=== PATIENT | female | born 1975 | race African-American/Black ===

== ENCOUNTER 2022-11-26 13:26 | Emergency (ER) | payer SELFPAY ==
[~2022-11-26] VITALS: Ht 162.6 cm; Wt 58.0 kg
[2022-11-26 13:45] VITALS: BP 138/90
[2022-11-26] MEDS ORDERED: TETRACAINE 0.5% OPHTH DROPS 4ML BOTHEYE ONE (13:45)
[2022-11-26] MEDS ORDERED: FLUORESCEIN SODIUM 1MG/STRIP BOTHEYE ONE (13:45)
[2022-11-26] MEDS ORDERED: NAPR500T7 MT (14:26)
[2022-11-26] MEDS ORDERED: AMOX1TAB16 MT (14:27)
== END 2022-11-26 15:38 | disposition home or self-care (01) ==
LOC: ER 13:26
DX: K02.9 Dental caries, unspecified (principal); H53.8 Other visual disturbances; Z91.040 Latex allergy status; Z88.8 Allergy status to other drugs, medicaments and biological substances
CPT/HCPCS: 99283